=== PATIENT | female | born 1945 | race Caucasian/White ===

== ENCOUNTER 2016-11-22 00:13 | Emergency (ER) | payer MEDICARE ==
[~2016-11-22] VITALS: Ht 170.2 cm; Wt 76.7 kg
[2016-11-22] MEDS ORDERED: FUROSEMIDE40 MG ORAL (00:38)
[2016-11-22] MEDS ORDERED: CELEXA20 MG ORAL (00:38)
[2016-11-22] MEDS ORDERED: BACLOFEN10 MG ORAL (00:38)
[2016-11-22 00:47] VITALS: BP 126/64
[2016-11-22] MEDS ORDERED: HYDROmorphone 1mg/ml Carpuject IVP ONE (01:00)
[2016-11-22 01:40] LABS: BASOPHILS % (AUTO) 0.6 % (0.0-2.0); LYMPHOCYTES % (AUTO) 17.3 % (20.0-45.0); MEAN CORPUSCULAR HEMOGLOBIN 28.8 PG (27.0-31.0); MEAN CORPUSCULAR HGB CONC 31.2 G/DL (32.0-36.0); MEAN CORPUSCULAR VOLUME 92 FL (80-99); MEAN PLATELET VOLUME 7.7 FL (6.5-10.1); NEUTROPHILS % (AUTO) 72.1 % (45.0-75.0); PLATELET COUNT 128 K/UL (150-450); RED BLOOD COUNT 3.44 M/UL (4.20-5.40); RED CELL DISTRIBUTION WIDTH 13.6 % (11.6-14.8); WHITE BLOOD COUNT 5.7 K/UL (4.8-10.8)
[2016-11-22 01:45] LABS: INR 1.2 (0.9-1.1); PROTHROMBIN TIME 12.3 SEC (9.30-11.50)
[2016-11-22 01:48] LABS: ALANINE AMINOTRANSFERASE 11 U/L (3-33); ALBUMIN/GLOBULIN RATIO 0.8 (1.0-2.7); ANION GAP 13 (5-15); ASPARTATE AMINO TRANSFERASE 36 U/L (5-40); CALCIUM 8.7 mg/dL (8.6-10.2); CARBON DIOXIDE 25 mEQ/L (20-30); CHLORIDE 96 mEQ/L (98-107); CREATININE 0.7 mg/dL (0.5-0.9); HEMOLYSIS 265; POTASSIUM 5.4 mEQ/L (3.4-4.9); SODIUM 134 mEQ/L (135-145); TOTAL PROTEIN 6.7 g/dL (6.6-8.7)
[2016-11-22 02:36] LABS: BILIRUBIN,DIRECT 0.1 mg/dL (0.1-0.3)
[2016-11-22 03:02] LABS: KETONES,URINE NEGATIVE (NEGATIVE); LEUKOCYTE ESTERASE ,URINE 2+ (NEGATIVE); NITRITE,URINE POSITIVE (NEGATIVE); PH,URINE 5 (4.5-8.0); PROTEIN,URINE NEGATIVE (NEGATIVE); UROBILINOGEN,URINE 1 MG/DL (0.0-1.0)
[2016-11-22 03:08] LABS: APPEARANCE,URINE SLIGHTLY CLOUDY
[2016-11-22] MEDS ORDERED: cefTRIAXone 1 GM in NS 55 ML IVPB ONE (03:30)
[2016-11-22 03:35] LABS: BACTERIA,URINE MANY /HPF; RBC,URINE 0-2 /HPF (0 - 2); SQUAMOUS EPITHELIAL CELL,UR FEW /LPF (NONE/OCC); WBC,URINE 15-20 /HPF (0 - 2)
[2016-11-22 03:45] VITALS: BP 105/49
[2016-11-22] MEDS ORDERED: BACTRIM DS TAB1 EAC1 ORAL (03:50)
--- NOTE | 2016-11-22 03:51 | Emergency Room Report ---
History of Present Illness General Chief Complaint: Pain Source: Patient, Family Member Present Illness HPI This is a 71-year-old debilitated bedbound female with a history of chronic pain. She presents with 2 complaints. Her chronic complaint is that she has chronic low tree pain. She goes to [place] practically every week for it. Pain is severe. 10 out of 10. According to her family. And redness of her lower extremities little worse. No fever or chills. No drainage. Any palpation or movement made it worse. She is taking pain medication for it. Her second complaint is that is no urine output from the Garcia. A home visiting nurse placed a Garcia today. By now quite the family she should have 2 bags full. She is urinating around in the diaper. No other complaint. No fever or chills. No nausea no vomiting. Allergies: Coded Allergies: PENICILLINS (Verified Allergy, Unknown, 11/22/16) Patient History Past Medical History: see triage record, old chart reviewed Past Surgical History: other Pertinent Family History: none Social History: Reports: alcohol use - history, Denies: smoking Now: No Immunizations: other Reviewed Nursing Documentation: PMH: Agreed, PSxH: Agreed Review of Systems Eye: Denies: blurred vision, eye pain ENT: Denies: ear pain, nose congestion, throat swelling Respiratory: Denies: cough, shortness of breath Cardiovascular: Denies: chest pain, palpitations Gastrointestinal: Denies: abdominal pain, diarrhea, nausea, vomiting Musculoskeletal: Denies: back pain, joint pain Skin: Denies: rash Neurological: Denies: headache, numbness Endocrine: Denies: increased thirst, increased urine Hematologic/Lymphatic: Denies: easy bruising All Other Systems: negative except mentioned in HPI Physical Exam Vital Signs Date Time Temp Pulse Resp B/P Pulse Ox O2 Delivery O2 Flow Rate FiO2 11/22/16 00:27 97.9 88 16 126/64 95 Room Air vitals normal Sp02 EP Interpretation: reviewed, normal General Appearance: no apparent distress, alert, Chronically Ill Head: normocephalic, atraumatic Eyes: bilateral eye EOMI, bilateral eye PERRL ENT: hearing grossly normal, normal pharynx Neck: full range of motion, supple, no meningismus Respiratory: chest non-tender, lungs clear, normal breath sounds Cardiovascular #1: regular rate, rhythm, no murmur Gastrointestinal: normal bowel sounds, non tender, no mass, no organomegaly, no bruit, non-distended Musculoskeletal: back normal, other - Bilateral lower extremities: She has hyperemia of the tibia. 1+ edema. Unchanged before. Sensation normal. Psychiatric: mood/affect normal Skin: warm/dry Medical Decision Making Diagnostic Impression: Primary Impression: UTI (urinary tract infection) Qualified Codes: N30.00 - Acute cystitis without hematuria Additional Impression: Leg pain Qualified Codes: M79.604 - Pain In Right Leg; M79.605 - Pain In Left Leg ER Course Patient with bilateral lower extremity pain. Pain well controlled with Dilaudid. Her Garcia was not in the urethra. It was in the vaginal vault. A new one placed. She does have a urinary tract infection. I spoke with the [place] doctor. She grew out bacteria is sensitive to Cipro and Bactrim. Lab Results Impression labs unremarkable Last Vital Signs Date Time Temp Pulse Resp B/P Pulse Ox O2 Delivery O2 Flow Rate FiO2 11/22/16 00:47 97.9 75 16 126/64 97 Room Air Status: improved Disposition: HOME, SELF-CARE Condition: Stable Scripts Trimethoprim/Sulfamethoxazole 160/800* (BACTRIM DS TABLET*) 1 Each Tablet 1 TAB ORAL Q12H, #14 TAB 0 Refills Prov: DANI HOLLINGSWORTH M.D. 11/22/16 Referrals: [facility] (PCP) Additional Instructions: followup your [place] doctor as scheduled. Return for increasing pain, fever, chills, or any concern. DANI HOLLINGSWORTH M.D. Nov 22, 2016 03:51
[2016-11-22] MEDS ORDERED: Tylenol #3 tab (300mg/30mg) ORAL ONE (04:00)
[2016-11-22 04:57] VITALS: BP_SYST 103; BP_SYST 105; BP_DIAS 49; BP_DIAS 53
== END 2016-11-22 04:59 | disposition home or self-care (01) ==
LOC: EDBD 00:13 → EMR 01:00
DX: N39.0 Urinary tract infection, site not specified (principal); M79.605 Pain in left leg; M79.604 Pain in right leg; R60.0 Localized edema; Z88.0 Allergy status to penicillin
CPT/HCPCS: 36415; 80053; 81001; 82248; 85025; 85610; 85730; 87086; 87181; 96374; 96375; 99284; J0696; J1170; J2405; J7040